=== PATIENT | male | born 1945 | race Caucasian/White ===

== ENCOUNTER → 2018-11-30 09:49 | Outpatient (CLI) | payer MEDICARE, OTHER ==
[2014-04-22 14:01] VITALS: BMI 21.8
== END | disposition home or self-care (01) ==
LOC: D.HCCARDIO 09:49
PROVIDERS: ATTEND Internal Medicine Cardiovascular Disease
DX: I25.10 Atherosclerotic heart disease of native coronary artery without angina pectoris (principal)